=== PATIENT | female | born 1950 | race Caucasian/White ===

== ENCOUNTER 2023-11-13 11:37 | Outpatient (CLI) | payer MEDICARE, SELFPAY ==
--- NOTE | 2023-11-13 11:59 | W.ANESCHARGE ---
Anesthesia Charges Start Date/Time Anesthesia Start Date: 11/13/23 Anesthesia Start Time: 12:43 Stop Date/Time Anesthesia Stop Date: 11/13/23 Anesthesia Stop Time: 13:20 Summary Extremes of Age - Over 70 or under 1: MDA
--- NOTE | 2023-11-13 13:23 | P.ANES_ITS ---
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
== END 2023-11-13 11:38 | disposition home or self-care (01) ==
LOC: OP CLINIC 11:40
PROVIDERS: PCP Student in an Organized Health Care Education/Training Program; Visit Provider Internal Medicine Gastroenterology
DX: Z12.11 Encounter for screening for malignant neoplasm of colon (principal); Q43.8 Other specified congenital malformations of intestine; Z86.010 Personal history of colon polyps
CPT/HCPCS: 45378; 811; 812; 99100; J2704